=== PATIENT | male | born 1990 | race Caucasian/White ===

== ENCOUNTER 2016-06-14 10:57 | Emergency (ER) | payer OTHER ==
[~2016-06-14] VITALS: Ht 177.8 cm; Wt 77.1 kg
[2016-06-14] MEDS ORDERED: NORCO, ANEXSIA 5/325MG TABLET (HYDROcodone/ACETAMINOPHEN) PO ONE (11:15)
--- NOTE | 2016-06-14 11:44 | REP ---
LEFT FOREARM SERIES, COMPLETE: 06/14/2016. Comparison is a left hand and wrist series 09/06/2014. Clinical history: Trauma. Findings: The two-view show radius and ulna without fracture or focal lesion. Radial head aligns normally with the capitellum. There is no radiopaque foreign body. Visualized portions of the elbow and wrist included were unremarkable. Impression: 1. No fracture or focal lesion about the forearm. Signed by Keyshawn Perez MD 06/14/2016 06:37 P
[2016-06-14] MEDS ORDERED: NAPR500T PO (11:52)
--- NOTE | 2016-06-14 11:54 | REP ---
AP LATERAL LEFT KNEE: 06/14/2016. Comparison: 10/15/2015. Clinical history: Trauma, knee pain. Findings: Two-view show small inferior spur from the patella on the lateral view. There is no narrowing of the three joint compartments. No definite joint effusion, fracture or loose body. I see no avulsion or osteochondral defect. Impression: 1. No visible or displaced fracture, avulsion, joint space narrowing, loose body or osteochondral defect. No definite effusion. Signed by Keyshawn Perez MD 06/14/2016 06:38 P
[2016-06-14 12:08] VITALS: BP 122/64
== END 2016-06-14 12:32 | disposition home or self-care (01) ==
LOC: M ED 12:05
DX: S80.02XA Contusion of left knee, initial encounter (principal); S50.12XA Contusion of left forearm, initial encounter; W10.9XXA Fall (on) (from) unspecified stairs and steps, initial encounter; Y92.019 Unspecified place in single-family (private) house as the place of occurrence of the external cause; Y93.01 Activity, walking, marching and hiking; Y99.8 Other external cause status; F17.200 Nicotine dependence, unspecified, uncomplicated; Z88.8 Allergy status to other drugs, medicaments and biological substances

== ENCOUNTER 2016-07-13 16:21 | Emergency (ER) | payer OTHER ==
[~2016-07-13 16:21] MED LIST: NAPR500T PO
[2016-07-13] MEDS ORDERED: NS 1,000 ML IV ONE (20:15)
[2016-07-13] MEDS ORDERED: ONDANSETRON 4MG/2ML VIAL (J2405) IV ONE (20:15)
[2016-07-13 20:30] LABS: BASO % 0.1 % (0.0-1.0); EOS # 0.2 K/mm3 (0.0-0.50); EOS % 2.1 % (0.0-3.0); LARGE UNSTAINED CELL # 0.1 K/mm3 (0.0-0.4); LARGE UNSTAINED CELL % 0.4 % (0.0-4.0); LYMPH # 0.5 K/mm3 (1.5-6.5); MEAN CORPUSCULAR HEMOGLOBIN 30.3 pg (27.0-33.0); MEAN CORPUSCULAR HGB CONC 34.7 g/dl (32.0-36.5); MEAN CORPUSCULAR VOLUME 87.3 fl (80.0-96.0); MONO # 0.4 K/mm3 (0.0-0.8); MONO % 3.1 % (0.0-5.0); NEUTROPHILS # 10.8 K/mm3 (1.8-7.7); NEUTROPHILS % 90.2 % (36.0-66.0); PLATELET COUNT, AUTOMATED 194 k/mm3 (150-450); RED CELL DISTRIBUTION WIDTH 12.2 % (11.5-14.5); WHITE BLOOD COUNT 11.9 K/mm3 (4.0-10.0)
[2016-07-13 21:25] LABS: ALBUMIN/GLOBULIN RATIO 1.11 (1.00-1.93); ALKALINE PHOSPHATASE 71 U/L (45-117); ALT/SGPT 19 U/L (12-78); AMYLASE 40 U/L (25-115); ANION GAP 6 MEQ/L (8-16); AST/SGOT 10 U/L (15-37); BILIRUBIN,DIRECT 0.2 MG/DL (0.0-0.2); BILIRUBIN,TOTAL 0.9 MG/DL (0.2-1.0); BLOOD UREA NITROGEN 25 MG/DL (7-18); CALCIUM LEVEL 8.9 MG/DL (8.5-10.1); CARBON DIOXIDE LEVEL 27 MEQ/L (21-32); CHLORIDE LEVEL 106 MEQ/L (98-107); CREATININE FOR GFR 1.11 MG/DL (0.70-1.30); GLOMERULAR FILTRATION RATE > 60.0 (>60); GLUCOSE, FASTING 102 MG/DL (70-105); POTASSIUM SERUM 4.1 MEQ/L (3.5-5.1); SODIUM LEVEL 139 MEQ/L (136-145); TOTAL PROTEIN 7.6 GM/DL (6.4-8.2)
[2016-07-13] MEDS ORDERED: ZOFR4TAB3 PO (22:03)
[2016-07-13] MEDS ORDERED: ACETAMINOPHEN TAB 650MG DOSE (2X325MG) PO ONE (22:15)
[2016-07-13 22:18] VITALS: BP 136/69
== END 2016-07-13 22:30 | disposition home or self-care (01) ==
LOC: M ED 17:30
DX: R11.2 Nausea with vomiting, unspecified (principal); R19.7 Diarrhea, unspecified; E86.0 Dehydration
CPT/HCPCS: 80048; 80076; 81001; 82150; 83690; 85025; 87086; 96374; 99283; J2405

== ENCOUNTER 2016-07-27 08:13 | Emergency (ER) | payer OTHER ==
[~2016-07-27] VITALS: Ht 175.3 cm; Wt 74.8 kg
[~2016-07-27 08:13] MED LIST changes: +ZOFR4TAB3 PO
[2016-07-27 08:17] VITALS: BP 134/89
== END 2016-07-27 10:26 | disposition left against medical advice (07) ==
LOC: M ED 09:30
DX: F41.9 Anxiety disorder, unspecified (principal); Z53.29 Procedure and treatment not carried out because of patient's decision for other reasons

== ENCOUNTER → 2016-08-02 | Outpatient (CLI) | payer OTHER | LOC: M LAB 13:04 | PROVIDERS: ATTEND Family Medicine Addiction Medicine | DX: Z20.818 Contact with and (suspected) exposure to other bacterial communicable diseases (principal) ==

== ENCOUNTER 2016-10-30 10:05 | Emergency (ER) | payer OTHER ==
[~2016-10-30] VITALS: Ht 177.8 cm; Wt 68.2 kg
[2016-10-30] MEDS ORDERED: IBUPROFEN 800 MG TAB PO ONE (10:30)
[2016-10-30] MEDS ORDERED: ACETAMINOPHEN 325 MG TAB PO ONE (10:45)
--- NOTE | 2016-10-30 11:11 | REP ---
REASON: Pain after trauma. PRIORS: None. FINDINGS: The joint spaces are symmetric and relatively well maintained. There is no evidence of acute fracture or destructive osseous lesion. IMPRESSION: Negative. There is an old healed boxer's fracture. Signed by Atul Briseno DO 10/30/2016 01:53 P
[2016-10-30 11:17] VITALS: BP 129/69
== END 2016-10-30 11:25 | disposition home or self-care (01) ==
LOC: M ED 10:05
DX: S63.656A Sprain of metacarpophalangeal joint of right little finger, initial encounter (principal); Z87.891 Personal history of nicotine dependence; X50.1XXA Overexertion from prolonged static or awkward postures, initial encounter; Y92.830 Public park as the place of occurrence of the external cause; Y93.67 Activity, basketball; Y99.9 Unspecified external cause status

== ENCOUNTER → 2017-01-16 | Outpatient (CLI) | payer OTHER | LOC: M LAB 13:43 | PROVIDERS: ATTEND Nurse Practitioner Psychiatric/Mental Health | DX: F25.0 Schizoaffective disorder, bipolar type (principal) ==

== ENCOUNTER → 2017-01-16 | Outpatient (REF) | payer OTHER | LOC: M LAB REF 16:23 | PROVIDERS: ATTEND Physician Assistant Medical | DX: Z20.2 Contact with and (suspected) exposure to infections with a predominantly sexual mode of transmission (principal) ==

== ENCOUNTER → 2017-06-01 | Outpatient (REF) | payer OTHER ==
[2017-06-01 14:08] LABS: CHLAMYDIA DNA AMPLIFICATION NEGATIVE (NEGATIVE); GC DNA AMPLIFICATION NEGATIVE (NEGATIVE)
== END ==
LOC: M LAB REF 12:09
DX: Z11.3 Encounter for screening for infections with a predominantly sexual mode of transmission (principal)
CPT/HCPCS: 87591

== ENCOUNTER 2017-06-03 13:02 | Emergency (ER) | payer MEDICAID, OTHER ==
[2017-06-03] MEDS ORDERED: ONDANSETRON 4MG/2ML VIAL (J2405) IV (14:15)
[2017-06-03] MEDS ORDERED: NS 1,000 ML IV (14:15)
[2017-06-03] MEDS: ONDANSETRON 4 MG ORAL DISINTEGRATING TAB (S0181) PO (14:30)
== END 2017-06-03 14:38 | disposition left against medical advice (07) ==
LOC: M ED 13:02
DX: K92.0 Hematemesis (principal); R10.9 Unspecified abdominal pain; F41.9 Anxiety disorder, unspecified; F32.9 Major depressive disorder, single episode, unspecified; Z72.89 Other problems related to lifestyle; F17.210 Nicotine dependence, cigarettes, uncomplicated; Z88.6 Allergy status to analgesic agent; Z79.899 Other long term (current) drug therapy
CPT/HCPCS: 99283

== ENCOUNTER 2017-11-21 08:11 | Emergency (ER) | payer OTHER, MEDICAID ==
[2017-11-21] MEDS: IBUPROFEN 600 MG TAB PO (09:14)
== END 2017-11-21 09:27 | disposition home or self-care (01) ==
LOC: M ED 08:11
DX: S62.201A Unspecified fracture of first metacarpal bone, right hand, initial encounter for closed fracture (principal); X58.XXXA Exposure to other specified factors, initial encounter; Y92.89 Other specified places as the place of occurrence of the external cause; Z88.8 Allergy status to other drugs, medicaments and biological substances; F17.210 Nicotine dependence, cigarettes, uncomplicated
CPT/HCPCS: 73140

== ENCOUNTER 2020-10-13 05:42 | Emergency (ER) | payer OTHER ==
[~2020-10-13] VITALS: Ht 177.8 cm; Wt 77.8 kg
[~2020-10-13 05:42] MED LIST changes: +CONC18TA14; +CONC54TA4; +CONC54TA4 PO; +HYDR-3715 PO; +IBUP-1022 PO; +NAPR-837 PO; -NAPR500T PO; +TYLE325C PO; +VENL75CA47 PO; +ZOFR4TAB14 PO; -ZOFR4TAB3 PO
[2020-10-13 05:44] VITALS: BP 158/80
[2020-10-13] MEDS ORDERED: ONDA8TAB8 PO (11:05)
== END 2020-10-13 06:00 | disposition left against medical advice (07) ==
LOC: M ED 05:42
DX: Z53.21 Procedure and treatment not carried out due to patient leaving prior to being seen by health care provider (principal)

== ENCOUNTER 2020-10-13 07:05 | Emergency (ER) | payer MEDICAID, OTHER ==
[~2020-10-13] VITALS: Ht 175.3 cm; Wt 78.3 kg
[2020-10-13] MEDS ORDERED: ONDANSETRON 4MG/2ML VIAL IV ONE (07:15)
[2020-10-13] MEDS ORDERED: NS 1,000 ML IV ONE ×2 (07:15→09:40)
[2020-10-13 07:58] LABS: BASO # 0.1 10^3/uL (0.0-0.2); BASO % 0.3 % (0.0-1.0); HEMATOCRIT 42.1 % (42.0-52.0); HEMOGLOBIN 14.4 g/dl (13.5-17.5); LYMPH # 1.8 10^3/uL (1.5-5.0); LYMPH % 9.7 % (24.0-44.0); MEAN CORPUSCULAR HEMOGLOBIN 29.8 pg (27.0-33.0); MEAN CORPUSCULAR HGB CONC 34.2 g/dl (32.0-36.5); MEAN CORPUSCULAR VOLUME 87.2 fl (80.0-96.0); MONO # 1.6 10^3/uL (0.0-0.8); MONO % 8.7 % (2.0-8.0); NEUTROPHILS # 14.9 10^3/uL (1.5-8.5); NEUTROPHILS % 80.6 % (36.0-66.0); PLATELET COUNT, AUTOMATED 364 10^3/uL (150-450); RED BLOOD COUNT 4.83 10^6/uL (4.30-6.10)
[2020-10-13 08:21] LABS: WHITE BLOOD COUNT 18.5 10^3/uL (4.0-10.0)
[2020-10-13 08:30] LABS: ALBUMIN 4.7 GM/DL (3.2-5.2); ALT/SGPT 38 U/L (12-78); BILIRUBIN,DIRECT 0.2 MG/DL (0.0-0.2); BILIRUBIN,TOTAL 0.6 MG/DL (0.2-1.0); CK-MB VALUE MASS < 1.0 NG/ML (<3.6); CPK CREATINE PHOSPHOKINASE 402 U/L (39-308); LIPASE 48 U/L (73-393); MB/CK RELATIVE INDEX 0.25 (< OR =4); TOTAL PROTEIN 8.7 GM/DL (6.4-8.2); TROPONIN I < 0.02 NG/ML (< 0.10)
[2020-10-13] MEDS ORDERED: ISOVUE-370 76% 100ML VIAL As Ordered ONE (08:55)
--- NOTE | 2020-10-13 09:17 | REP ---
INDICATION: diffuse abd pain, vomiting. COMPARISON: 08/27/2014 TECHNIQUE: Axial contrast-enhanced images from the lung bases to the pubic symphysis using 100 cc Isovue 370 intravenous contrast material. Coronal and sagittal reformations obtained. This CT examination was performed using the following dose reduction techniques: Automated exposure control, adjustment of mA and/or kv according to the patient's size, and the use of iterative reconstruction technique. FINDINGS: Liver, spleen, pancreas, gallbladder, bilateral adrenal glands and kidneys are normal. The enteric system including stomach, small, and large bowel appears normal. No evidence for obstruction or acute inflammatory process. Normal terminal ileum and appendix are identified in the right lower quadrant. Pelvis demonstrates normal bladder and age-appropriate prostate/seminal vesicles. No ascites. No free air. No intraperitoneal or retroperitoneal adenopathy. Abdominal aorta and vasculature appear normal. Musculoskeletal structures are intact and without acute osseous abnormality. IMPRESSION: No acute abdominopelvic pathology appreciated. <Electronically signed by Duane Guillory > 10/13/20 0914
[2020-10-13 09:27] LABS: AMPHETAMINES LEVEL URINE NEGATIVE (NEGATIVE); BARBITURATES URINE NEGATIVE (NEGATIVE); BENZODIAZEPINES URINE NEGATIVE (NEGATIVE); CANNABINOIDS URINE NEGATIVE (NEGATIVE); COCAINE METABOLITE URINE NEGATIVE (NEGATIVE); METHADONE URINE NEGATIVE (NEGATIVE); OPIATES URINE NEGATIVE (NEGATIVE); PHENCYCLIDINE URINE NEGATIVE (NEGATIVE)
[2020-10-13] MEDS ORDERED: PIPERACILLIN/TAZOBACTAM SOD 3.375 GM in D5W MINI-BAG PLUS 50 ML IV ONE (09:45)
[2020-10-13 10:12] VITALS: BP 129/60
[2020-10-13] MEDS ORDERED: ONDA8TAB8 PO (11:05)
--- NOTE | 2020-10-13 20:47 | ECGEPIP ---
[facility] - ED Test Date: 2020-10-13 Pat Name: GIANNA BARNES Department: Room: - Gender: Male Buffer Nickel: billie : 1990 Requested By: ERROL Vargas PA-C Order Number: [id number] Reading MD: Fredi Nunes Measurements Intervals [place] Rate: 75 P: 13 MO: 158 QRS: 20 QRSD: 92 T: 16 QT: 404 QTc: 451 Interpretive Statements Normal sinus rhythm with sinus arrhythmia POOR R WAVE PROGRESSION NONSPECIFIC T WAVE ABNORMALITY(S) NO PRIORS FOR COMPARISON Electronically Signed on 10-13-2020 20:47:30 EDT by Fredi Nunes
== END 2020-10-13 11:11 | disposition home or self-care (01) ==
LOC: M ED 07:05
DX: R10.84 Generalized abdominal pain (principal); R11.2 Nausea with vomiting, unspecified; R19.7 Diarrhea, unspecified; K21.9 Gastro-esophageal reflux disease without esophagitis; Z88.8 Allergy status to other drugs, medicaments and biological substances
CPT/HCPCS: 74177; 80047; 80076; 80307; 82550; 82553; 83690; 85025; 93005; 96361; 96365; 96375; 99284; J2405; J2543; Q9967

== ENCOUNTER 2021-06-05 04:33 | Emergency (ER) | payer OTHER ==
[~2021-06-05] VITALS: Ht 180.3 cm; Wt 70.6 kg
[~2021-06-05 04:33] MED LIST changes: +ONDA8TAB8 PO
[2021-06-05 04:34] VITALS: BP 122/66
== END 2021-06-05 04:50 | disposition left against medical advice (07) ==
LOC: M ED 04:33
DX: Z53.29 Procedure and treatment not carried out because of patient's decision for other reasons (principal)

== ENCOUNTER 2022-04-23 15:51 | Emergency (ER) | payer OTHER ==
[~2022-04-23] VITALS: Ht 177.8 cm; Wt 76.7 kg
[2022-04-23 15:53] VITALS: BP 167/92
== END 2022-04-23 18:22 | disposition left against medical advice (07) ==
LOC: M ED 15:51
DX: Z53.21 Procedure and treatment not carried out due to patient leaving prior to being seen by health care provider (principal)

== ENCOUNTER → 2022-06-12 | Outpatient (REF) | payer OTHER | LOC: M LAB REF 16:03 | PROVIDERS: ATTEND Physician Assistant | DX: J02.9 Acute pharyngitis, unspecified (principal) ==

== ENCOUNTER → 2022-06-13 | Outpatient (REF) | payer OTHER ==
[2022-06-13 18:18] LABS: HEPATITIS C VIRUS ABY INDEX 0.1 INDEX (<0.8)
== END ==
LOC: M LAB REF 16:31
PROVIDERS: ATTEND Physician Assistant
DX: Z11.59 Encounter for screening for other viral diseases (principal); Z11.3 Encounter for screening for infections with a predominantly sexual mode of transmission

== ENCOUNTER → 2025-03-23 | Outpatient (CLI) | payer BC ==
[~2025-03-23] MED LIST changes: -IBUP-1022 PO; +IBUP600T42 PO; +ONDA-284 PO; -ONDA8TAB8 PO
== END ==
LOC: M RAD 11:04
PROVIDERS: ATTEND Nurse Practitioner Family
DX: R10.31 Right lower quadrant pain (principal); K40.90 Unilateral inguinal hernia, without obstruction or gangrene, not specified as recurrent